=== PATIENT | female | born 1955 | race Caucasian/White ===

== ENCOUNTER 2017-09-27 08:28 | Inpatient (IN) | payer OTHER ==
[~2017-09-27] VITALS: Ht 157.5 cm; Wt 96.0 kg
[2017-09-27] MEDS ORDERED: GLUCOPHAGE1000 MG PO (12:04)
[2017-09-27] MEDS ORDERED: LIPITOR40 MG PO (12:05)
[2017-09-27] MEDS ORDERED: ZOLOFT100 MG PO (12:06)
[2017-09-27] MEDS ORDERED: COZAAR100 MG PO (12:07)
[2017-09-27] MEDS ORDERED: LOPRESSOR25 MG PO (12:08)
[2017-09-27] MEDS ORDERED: KEPPRA750 MG PO (12:09)
[2017-09-27] MEDS ORDERED: CLARITIN10 M3 PO (12:12)
[2017-09-27 12:19] VITALS: BP 117/68
[2017-09-27 15:30] VITALS: BP 112/55
[2017-09-28 00:27] VITALS: BP 127/60
[2017-09-28 05:08] VITALS: BP 141/74
[2017-09-28 08:59] LABS: HEMATOCRIT 37.9 % (36.0-46.0); HEMOGLOBIN 12.3 G/DL (11.9-15.5); MCH 27.8 PG (29.0-34.0); MCHC 32.5 G/DL (30.0-36.0); MCV 85.7 FL (83-99); PLATELET COUNT 165 K/uL (156-360); RBC DIS.WIDTH-CV 13.4 % (11.8-14.6); RBC DIS.WIDTH-SD 42.2 % (39-53); RED BLOOD COUNT 4.42 M/uL (3.80-5.20); WHITE BLOOD COUNT 8.4 K/uL (4.1-10.2)
[2017-09-28 09:29] LABS: ALBUMIN 3.8 G/DL (3.2-4.8); ALKALINE PHOSPHATASE 77 IU/L (3-129); ALT (GPT) 17 IU/L (3-49); AST (GOT) 14 IU/L (2-34); CHLORIDE 103 MEQ/L (99-109); CREATININE 0.8 MG/DL (0.6-1.3); GFR ESTIMATE (CALCULATED) > 59 mL/min/; GLUCOSE 185 mg/dL (70-99); SODIUM 139 MEQ/L (136-147); TOTAL BILIRUBIN 0.5 MG/DL (0.0-1.0); TOTAL PROTEIN 6.1 G/DL (6.4-8.3); UREA NITROGEN (BUN) 16 mg/dL (9-23)
[2017-09-28 15:13] VITALS: BP 107/61
[2017-09-29 05:55] VITALS: BP 118/65
[2017-09-29 08:05] VITALS: BP 126/61
[2017-09-29 16:01] VITALS: BP 117/60
[2017-09-30 05:44] VITALS: BP 111/66
[2017-09-30 07:05] VITALS: BP 113/68
[2017-09-30 15:07] VITALS: BP 99/56
[2017-10-01 05:34] VITALS: BP 118/65
[2017-10-01 15:36] VITALS: BP 107/52
[2017-10-02 06:07] VITALS: BP 129/64
[2017-10-02 07:45] LABS: HEMATOCRIT 36.8 % (36.0-46.0); MCH 27.8 PG (29.0-34.0); MCHC 32.6 G/DL (30.0-36.0); MCV 85.4 FL (83-99); PLATELET COUNT 166 K/uL (156-360); RBC DIS.WIDTH-CV 13.4 % (11.8-14.6); RBC DIS.WIDTH-SD 42.3 % (39-53); RED BLOOD COUNT 4.31 M/uL (3.80-5.20); WHITE BLOOD COUNT 9.2 K/uL (4.1-10.2)
[2017-10-02 08:09] LABS: ALBUMIN 3.7 G/DL (3.2-4.8); ALKALINE PHOSPHATASE 74 IU/L (3-129); ALT (GPT) 15 IU/L (3-49); AST (GOT) 12 IU/L (2-34); CHLORIDE 106 MEQ/L (99-109); GFR ESTIMATE (CALCULATED) > 59 mL/min/; GLUCOSE 107 mg/dL (70-99); POTASSIUM 4.3 MEQ/L (3.7-5.4); SODIUM 138 MEQ/L (136-147); TOTAL BILIRUBIN 0.5 MG/DL (0.0-1.0); TOTAL PROTEIN 6.3 G/DL (6.4-8.3)
[2017-10-02 08:23] LABS: UREA NITROGEN (BUN) 25 mg/dL (9-23)
[2017-10-02 15:08] VITALS: BP 120/66
[2017-10-02] MEDS ORDERED: LEVETIRACETAM500 MG PO (22:29)
[2017-10-02] MEDS ORDERED: LIPITOR40 MG PO (22:29)
[2017-10-02] MEDS ORDERED: GLUCOPHAGE1000 MG PO (22:29)
[2017-10-02] MEDS ORDERED: COZAAR100 MG PO (22:29)
[2017-10-02] MEDS ORDERED: BUPROPION HCL100 M1 PO (22:29)
[2017-10-02] MEDS ORDERED: LOPRESSOR25 MG PO (22:29)
[2017-10-02] MEDS ORDERED: Robitussin DM PO (22:29)
[2017-10-03 05:47] VITALS: BP 118/82
[2017-10-03 08:15] LABS: CHLORIDE 108 MEQ/L (99-109); CREATININE 0.9 MG/DL (0.6-1.3); GFR ESTIMATE (CALCULATED) > 59 mL/min/; GLUCOSE 108 mg/dL (70-99); POTASSIUM 4.6 MEQ/L (3.7-5.4); SODIUM 140 MEQ/L (136-147); UREA NITROGEN (BUN) 20 mg/dL (9-23)
== END 2017-10-03 14:24 | DRG 57 ==
LOC: 3WEST 08:28
PROVIDERS: Physical Medicine & Rehabilitation Pain Medicine
PROC: F07M0ZZ Range of Motion and Joint Mobility Treatment of Musculoskeletal System - Whole Body (ICD-10-PCS; principal; 2017-09-27)
DX: I69.151 Hemiplegia and hemiparesis following nontraumatic intracerebral hemorrhage affecting right dominant side (principal); I69.191 Dysphagia following nontraumatic intracerebral hemorrhage; I69.122 Dysarthria following nontraumatic intracerebral hemorrhage; R13.10 Dysphagia, unspecified; F33.0 Major depressive disorder, recurrent, mild; R79.89 Other specified abnormal findings of blood chemistry; I10 Essential (primary) hypertension; E11.9 Type 2 diabetes mellitus without complications; E78.5 Hyperlipidemia, unspecified; J45.909 Unspecified asthma, uncomplicated; E66.9 Obesity, unspecified; Z68.38 Body mass index [BMI] 38.0-38.9, adult; Z85.42 Personal history of malignant neoplasm of other parts of uterus; Z90.710 Acquired absence of both cervix and uterus; Z82.3 Family history of stroke; Z80.1 Family history of malignant neoplasm of trachea, bronchus and lung; Z81.8 Family history of other mental and behavioral disorders; Z79.84 Long term (current) use of oral hypoglycemic drugs
CPT/HCPCS: 71045; 74230; 80048; 80053; 82948; 85027; 92507 GN; 92523 GN; 92526 GN; 92610 GN; 92611 GN; 97530 GP; G0515 GN; J1815